=== PATIENT | male | born 1995 | race Two or more races ===

== ENCOUNTER 2017-08-12 13:20 | Emergency (ER) | payer OTHER ==
[2017-08-12 13:37] VITALS: BP 125/54
[2017-08-12] MEDS ORDERED: IBUPROFEN 600 MG TABLET PO ONE (13:46)
--- NOTE | 2017-08-12 13:48 | ER Document Report ---
ED General - General Chief Complaint: Low Back Pain Stated Complaint: BACK PAIN Time Seen by Provider: 08/12/17 13:46 Notes: 22-year-old male here with complaints of low back pain that started yesterday immediately after lifting heavy weights during weight lifting at the gym. States he heard a "crack". Pain is worse with movement. Pain is improved with minimizing movement. He has not taken anything for the pain. He denies any numbness tingling weakness fevers chills incontinence or retention. TRAVEL OUTSIDE OF THE [place] IN LAST 30 DAYS: No - Related Data Allergies/Adverse Reactions: No Known Allergies Allergy (Unverified 08/12/17 13:29) Past Medical History - Social History Smoking Status: Unknown if Ever Smoked Family History: Reviewed & Not Pertinent Review of Systems - Review of Systems Notes: See history of present illness for pertinent positive review of systems; otherwise all review of systems have been reviewed and are negative Physical Exam - Vital signs Vitals: Temp Pulse Resp BP Pulse Ox 98.4 F 68 16 125/54 L 99 08/12/17 13:34 08/12/17 13:34 08/12/17 13:34 08/12/17 13:34 08/12/17 13:34 - Notes Notes: PHYSICAL EXAMINATION: GENERAL: Well-appearing and in no acute distress. HEAD: Atraumatic, normocephalic. EYES: Pupils equal round and reactive to light, extraocular movements intact, sclera anicteric, conjunctiva are normal. ENT: nares patent, oropharynx clear without exudates. Moist mucous membranes. NECK: Normal range of motion, supple without lymphadenopathy LUNGS: CTAB and equal. No wheezes rales or rhonchi. HEART: Regular rate and rhythm without murmurs ABDOMEN: Soft, no tenderness. No guarding, no rebound EXTREMITIES: Normal range of motion, no pitting edema. No cyanosis. There is mild tenderness palpation of the lumbar spine in the area of L4, L5, S1. No sciatic root tenderness. No paraspinal muscle tenderness. NEUROLOGICAL: Cranial nerves grossly intact. Normal sensory/motor exams BLEs. PSYCH: Normal mood, normal affect. SKIN: Warm, Dry, normal turgor, no rashes or lesions noted Course - Re-evaluation Re-evalutation: 08/12/17 13:48 MEDICAL DECISION MAKING: Concern for acute musculoskeletal strain versus fracture Will obtain x-ray and give dose of Motrin Patient understands and agrees to the plan of care 08/12/17 15:12 The x-rays show some mild decrease in disc space of the lumbosacral spine I discussed the findings with the patient and instructed follow-up PCP next day or few Home with prescription meloxicam Flexeril He understands agrees plan of care - Vital Signs Vital signs: Temp Pulse Resp BP Pulse Ox 98.4 F 68 16 125/54 L 99 08/12/17 13:34 08/12/17 13:34 08/12/17 13:34 08/12/17 13:34 08/12/17 13:34 Discharge - Discharge Clinical Impression: Low back pain Qualifiers: Chronicity: acute Back pain laterality: midline Sciatica presence: without sciatica Qualified Code(s): M54.5 - Low back pain Condition: Good Disposition: HOME, SELF-CARE Additional Instructions: The x-ray showed a decrease in the disc space between your spine bones. Use the prescribed medication as needed for pain. You were seen in the emergency department at [facility]. If you were given any sedating medications, be sure not to operate heavy machinery (example - driving) and be sure you are not too sedated to walk appropriately. Please followup with your primary physician in the next few days for further management/evaluation. Please return to the emergency department for worsening of symptoms or any symptom that you deem to be concerning or life-threatening. Thank you for allowing us to be part of your care. Prescriptions: Cyclobenzaprine HCl [Flexeril 10 mg Tablet] 10 mg PO TIDP PRN #15 tab PRN Reason: Meloxicam 15 mg PO DAILYP PRN #7 tablet PRN Reason:
--- NOTE | 2017-08-12 15:06 | RADIOLOGY REPORT (SQ) ---
EXAM DESCRIPTION: L SPINE 2 VIEWS COMPLETED DATE/TIME: 08/12/2017 2:46 pm REASON FOR STUDY: pain at lower lumbar spine after lifting weights COMPARISON: None. NUMBER OF VIEWS: Three views. TECHNIQUE: AP and lateral radiographic images acquired of the lumbar spine. LIMITATIONS: None. FINDINGS: MINERALIZATION: Normal. SEGMENTATION: Normal. No transitional anatomy. ALIGNMENT: Normal. VERTEBRAE: Maintained height. No fracture or worrisome bone lesion. DISCS: Disc space narrowing L5-S1. POSTERIOR ELEMENTS: Pedicles and facets are intact. No pars defect or posterior arch defects. HARDWARE: None in the spine. PARASPINAL SOFT TISSUES: Normal. PELVIS: Intact as visualized. No fractures or worrisome bone lesions. SI joints intact. OTHER: No other significant finding. IMPRESSION: Disc disease L5-S1. TECHNICAL DOCUMENTATION: JOB ID: [id number]- All Rights Reserved Reading location - IP/workstation name: [email or web address]
== END 2017-08-12 15:33 | disposition home or self-care (01) ==
LOC: ER 13:20
DX: M54.5 Low back pain (principal); X50.0XXA Overexertion from strenuous movement or load, initial encounter
CPT/HCPCS: 72100; 99283